=== PATIENT | female | born 1985 | race American Indian/Alaskan Native ===

== ENCOUNTER 2021-08-19 16:41 | Emergency (ER) | payer SELFPAY ==
[2021-08-19 17:23] VITALS: BP 118/80
--- NOTE | 2021-08-19 19:55 | Emergency Department Report ---
Suture/Staple Removal - HPI Chief Complaint: Laceration/Recheck/Suture Stated Complaint: STAPLE REMOVAL Time Seen by Provider: 08/19/21 19:51 When Sutures or Damari Placed: 11-14 Days Ago Wound Location: right parietal scalp ED Review of Systems ROS: Stated complaint: STAPLE REMOVAL Other details as noted in HPI Comment: All other systems reviewed and negative Skin: other (laceration s/p repair ) ED Past Medical Hx - Past Medical History Hx Asthma: Yes - Surgical History Past Surgical History?: No Suture Removal Exam - Exam General: Vital signs noted. No distress. Alert and acting appropriately. Wound: No Pathologic Erythema, No Tenderness, No Drainage, No Pus, No Wound Dehiscence Other Systems: All other systems reviewed and are unremarkable. ED Course Vital Signs 08/19/21 17:22 Temperature 99 F Pulse Rate 86 Respiratory 20 Rate Blood Pressure 118/80 [Right] O2 Sat by Pulse 100 Oximetry Critical care attestation.: If time is entered above; I have spent that time in minutes in the direct care of this critically ill patient, excluding procedure time. ED Disposition Clinical Impression: Removal of staple Disposition: 01 HOME / SELF CARE / HOMELESS Is pt being admited?: No Does the pt Need Aspirin: No Condition: Stable Instructions: Wound Closure Removal, Care After Additional Instructions: You can continue to keep the area clean for another 5 days with soap and water and apply thin layer of Neosporin after each cleaning. Follow-up with your PCP as needed. Return to the ER if anything worsens or is concerning. Referrals: AMY CLARKE MD [Staff Physician] - 3-5 Days Time of Disposition: 19:55
== END 2021-08-19 21:35 | disposition home or self-care (01) ==
LOC: ED 16:41
DX: S01.01XD Laceration without foreign body of scalp, subsequent encounter (principal); X58.XXXD Exposure to other specified factors, subsequent encounter
CPT/HCPCS: 99282